=== PATIENT | female | born 1980 | race Caucasian/White ===

== ENCOUNTER 2020-04-06 14:35 | Emergency (ER) | payer MEDICAID, MEDICARE ==
[~2020-04-06] VITALS: Ht 162.6 cm; Wt 68.0 kg
[2020-04-06 14:40] VITALS: BP 134/95
== END 2020-04-06 17:29 | disposition home or self-care (01) ==
LOC: ER 14:35
DX: F45.8 Other somatoform disorders (principal)
CPT/HCPCS: 70360; 93005; 99283